=== PATIENT | male | born 1960 | race Caucasian/White ===

== ENCOUNTER 2016-10-08 20:57 | Emergency (ER) | payer MEDICARE, MEDICAID ==
[~2016-10-08 20:57] MED LIST: ACIDOPHILUS1 CAP PO; AMBIEN PAK10 MG PO; AMIODARONE HCL200 M1 PO; ATIVAN1 MG PO; AUGMENTIN 875-11 TAB PO; BACITRACIN30 GM TP; BACLOFEN20 MG PO; BACTRIM DS TAB1 EAC2 PO; BACTRIM DS1 TA1 PO; BENADRYL25 MG/TAB PO; CEPHALEXIN500 M1 PO; CHANTIX0.5 MG PO; CIPRO500 MG PO; COLACE100 MG PO; DIAZEPAM5 M PO; DICLOFENAC SODI75 M1 PO; DOXY-LEMMON100 M PO; HEPARIN 5000 UNIT IV; HYDROCORTISON28.4 G2 TP; HYDROCORTISONE 1% TP; LEVAQUIN750 M1 PO; LOVENOX40 MG/0.4 SQ; MAALOX SUSPENSI30 ML PO; MELOXICAM7.5 M1 PO; MELOXICAM7.5 MG PO; MILK OF MA400 MG/5 M PO; MULTIVITAMIN W/1 T PO; MULTIVITAMIN1 TAB PO; NORCO 5/325 TAB1 TAB PO; OMEPRAZOLE20 M3 PO; OMEPRAZOLE20 MG PO; PRILOSEC20 MG PO; TYLENOL325 M2 PO; TYLENOL500 MG PO; VITAMIN D31000 UNIT PO; XARELTO20 M1 PO
[2016-10-08 22:19] LABS: URINE BILIRUBIN NEGATIVE (NEG); URINE BLOOD LARGE (NEG); URINE GLUCOSE (UA) NEGATIVE (NEG); URINE KETONE NEGATIVE (NEG); URINE LEUKOCYTE ESTERASE POSITIVE (NEG); URINE NITRITE NEGATIVE (NEG); URINE PROTEIN NEGATIVE (NEG)
[2016-10-08 22:22] LABS: URINE APPEARANCE SL CLOUDY; URINE COLOR PALE YELLOW
[2016-10-08 22:38] LABS: URINE WBC 20-30 /[HPF] (0-5)
[2016-10-08] MEDS ORDERED: CIPRO500 M2 PO (22:57)
== END 2016-10-08 23:01 ==
LOC: EDMED 20:57
PROVIDERS: Emergency Medicine
PROC: 0T9B70Z Drainage of Bladder with Drainage Device, Via Natural or Artificial Opening (ICD-10-PCS; principal; 2016-10-08)
DX: N39.0 Urinary tract infection, site not specified (principal); T83.098A Other mechanical complication of other urinary catheter, initial encounter; I48.91 Unspecified atrial fibrillation; Z98.890 Other specified postprocedural states; Z79.899 Other long term (current) drug therapy; Z87.891 Personal history of nicotine dependence

== ENCOUNTER 2016-11-29 01:48 | Inpatient (IN) | payer MEDICARE, MEDICAID ==
[~2016-11-29 01:48] MED LIST changes: +CIPRO500 M2 PO
[2016-11-29] MEDS ORDERED: MELOXICAM7.5 M1 PO (02:04)
[2016-11-29 03:26] LABS: BASO % 0.6 % (0-2); EOS % 10.6 % (0-7); EOSINOPHIL ABSOLUTE COUNT 0.5 tho/cmm (0.0-0.7); HGB-HEMOGLOBIN 12.7 gm/dl (13.5-17.0); IMMATURE GRANULOCYTES ABSOLUTE 0.01 tho/cmm (0-0.03); IMMATURE GRANULOCYTES PERCENT 0.2 % (0-0.3); LYMPH % 29.4 % (20-45); LYMPH ABSOLUTE COUNT 1.5 tho/cmm (0.8-4.5); MCH (MEAN CORPUSCULAR HGB) 29.5 pg (28.0-32.0); MCHC MEAN CORPUSCULAR HGB CONC 32.6 % (32.0-36.0); MCV (MEAN CELL VOLUME) 90.7 fl (82.0-96.0); MEAN PLATELET VOLUME 10.7 cmc (9.4-12.4); MONO % 5.7 % (0-12); MONOCYTE ABSOLUTE COUNT 0.3 tho/cmm (0.0-1.2); NEUTROPHIL ABSOLUTE COUNT 2.7 tho/cmm (1.6-8.0); NEUTROPHIL-AUTOMATED 2.7 tho/cmm (1.6-8.0); NEUTROPHILS % 53.5 % (40-80); PLATELET COUNT 187 tho/cmm (150-450); WHITE BLOOD COUNT 5.1 tho/cmm (4.0-10.0)
[2016-11-29 03:29] LABS: URINE BILIRUBIN NEGATIVE (NEG); URINE BLOOD LARGE (NEG); URINE GLUCOSE (UA) NEGATIVE (NEG); URINE KETONE NEGATIVE (NEG); URINE LEUKOCYTE ESTERASE POSITIVE (NEG); URINE NITRITE POSITIVE (NEG); URINE PROTEIN SMALL (NEG); URINE SPECIFIC GRAVITY 1.005 (1.003-1.030)
[2016-11-29 03:31] LABS: URINE APPEARANCE SL CLOUDY; URINE COLOR PALE YELLOW
[2016-11-29 03:37] LABS: ALB/GLOB RATIO 0.9 (0.8-2.0); ALKALINE PHOSPHATASE 67 U/L (33-138); ALT/SGPT 15 U/L (12-78); ANION GAP 11 mmol/L (0-20); AST/SGOT 13 U/L (10-40); BILIRUBIN,TOTAL 0.3 mg/dl (0.0-1.5); BLOOD UREA NITROGEN 10 mg/dl (6-24); CALCIUM 8.3 mg/dl (8.5-10.5); CARBON DIOXIDE-VENOUS 28 mmol/L (22-32); CHLORIDE 107 mmol/l (96-110); CREATININE 0.57 mg/dl (0.60-1.30); GLUCOSE 123 mg/dL (70-110); POTASSIUM 3.2 mmol/L (3.7-5.1); SODIUM 143 mmol/L (135-145); eGFR VALUE FOR BLACK >90 mL/Min
[2016-11-29 03:39] LABS: URINE RBC 0-2 /[HPF] (0-5)
[2016-11-29 03:48] LABS: PROCALCITONIN <0.05 ng/ml (0.05-0.09)
--- NOTE | 2016-11-29 20:33 | NUR ---
CHAYO GASPAR-VISITED WITH PATIENT - DENIES PAIN. REQUESTS TO HAVE SOME NASAL SPRAY FOR HIS NOSE IT IS DRY. HE ALSO REQUESTED SOME FOOD SO I PAGED THE AID TO TAKE HIM A SANDWICH. PATIENT HAS NO OTHER QUESTIONS OR CONCERNS. I DID PAGE IMS FOR AN ORDER FOR NASAL SPRAY. CHART REVIEWED
[2016-11-30 04:55] LABS: BASO % 0.4 % (0-2); EOS % 7.6 % (0-7); EOSINOPHIL ABSOLUTE COUNT 0.4 tho/cmm (0.0-0.7); HCT-HEMATOCRIT 38.1 % (36.0-53.5); HGB-HEMOGLOBIN 12.2 gm/dl (13.5-17.0); LYMPH % 28.2 % (20-45); LYMPH ABSOLUTE COUNT 1.4 tho/cmm (0.8-4.5); MCH (MEAN CORPUSCULAR HGB) 29.5 pg (28.0-32.0); MEAN PLATELET VOLUME 10.6 cmc (9.4-12.4); MONO % 7.2 % (0-12); MONOCYTE ABSOLUTE COUNT 0.4 tho/cmm (0.0-1.2); NEUTROPHIL ABSOLUTE COUNT 2.8 tho/cmm (1.6-8.0); NEUTROPHIL-AUTOMATED 2.8 tho/cmm (1.6-8.0); NEUTROPHILS % 56.6 % (40-80); PLATELET COUNT 172 tho/cmm (150-450); RED BLOOD COUNT 4.14 mil/cmm (4.40-5.70); RED CELL DISTRIBUTION WIDTH 14.8 % (12.4-16.4)
[2016-11-30 05:14] LABS: ANION GAP 9 mmol/L (0-20); BLOOD UREA NITROGEN 11 mg/dl (6-24); CALCIUM 8.2 mg/dl (8.5-10.5); CARBON DIOXIDE-VENOUS 28 mmol/L (22-32); CHLORIDE 112 mmol/l (96-110); GLUCOSE 102 mg/dL (70-110); SODIUM 145 mmol/L (135-145); eGFR VALUE FOR BLACK >90 mL/Min
[2016-11-30 05:33] LABS: POTASSIUM 4.2 mmol/L (3.7-5.1)
[2016-11-30] MEDS ORDERED: AZELASTINE137 MCG/01 (12:11)
[2016-11-30] MEDS ORDERED: ZYRTEC10 M7 PO (12:12)
--- NOTE | 2016-11-30 12:39 | NUR ---
VIRTUAL CARE NOTE: PT RESTING ON BED, STATES DOING WELL, READY FOR DISCHARGE INSTRUCTIONS. INFORMATION GIVEN TO PT, PT DENIES QUESTIONS OR CONCERNS. INFORMED FLOOR NURSE DISCHARGE TEACHING DONE.
== END 2016-11-30 14:15 | DRG 194 ==
LOC: EDMED 01:48 → EMR2 05:53 → 5WD 07:53
PROVIDERS: Emergency Medicine; Nurse Practitioner; ADMIT Hospitalist
DX: J18.9 Pneumonia, unspecified organism (principal); G82.20 Paraplegia, unspecified; I95.9 Hypotension, unspecified; Z89.612 Acquired absence of left leg above knee; L89.619 Pressure ulcer of right heel, unspecified stage; N31.9 Neuromuscular dysfunction of bladder, unspecified; E87.6 Hypokalemia; G89.4 Chronic pain syndrome; D63.8 Anemia in other chronic diseases classified elsewhere; Z87.440 Personal history of urinary (tract) infections; Z79.899 Other long term (current) drug therapy; R55 Syncope and collapse; R42 Dizziness and giddiness
CPT/HCPCS: J1650; J1956; J7030; J7050